=== PATIENT | male | born 1960 | race Caucasian/White ===

== ENCOUNTER 2022-07-16 11:27 | Outpatient (CLI) | payer OTHER, SELFPAY ==
--- OUTSIDE RECORDS SUMMARY | 2022-07-16 10:43 | XMS_ITS | Clinical Summary ---
:1960 Author Organization [email or web address] [place] [address] Care Team Providers Name Role Phone Pcp, No Primary Care Provider Unavailable Allergies Active Allergy Reactions Severity Noted Date Comments Penicillins *Unknown - Childhood Rxn 10/14/2019 Medications Medication Sig Dispensed Refills Start Date End Date Status amLODIPine (NORVASC) 5 1 (ONE) TABLET BY 0 Active mg tablet MOUTH AT BEDTIME potassium chloride 1 (ONE) TABLET BY 0 01/31/2021 Active (K-DUR) 20 mEq MOUTH DAILY Extended-Release tablet telmisartan (MICARDIS) 0 01/27/2021 Active 80 mg tablet Active Problems Not on file Social History Tobacco Use Types Packs/Day Years Used Date Never Assessed Sex Assigned at Date Recorded Not on file Obstetrics History Last Filed Vital Signs Vital Sign Reading Time Taken Comments Blood Pressure 144/78 04/22/2021 12:07 PM CDT Pulse 80 04/22/2021 12:07 PM CDT Temperature 36.9 ??C (98.5 ??F) 04/22/2021 12:07 PM CDT Respiratory Rate 14 04/22/2021 12:07 PM CDT Oxygen Saturation 99% 04/22/2021 12:07 PM CDT Inhaled Oxygen Concentration - - Weight 77.1 kg (170 lb) 04/22/2021 12:07 PM CDT Height 172.7 cm (5' 8) 10/14/2019 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 Body Mass Index 25.85 10/14/2019 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 Plan of Treatment Health Maintenance Due Date Last Done Comments Tdap 1971 Depression screening for age 12+ 1972 BMI (ht and wt on same day) for age 18+ 1978 Hepatitis C screening for age 18-79 1978 Tetanus booster 1980 Colonoscopy through age 75 2005 Lipids for age 45-75 2005 Zoster (shingles) series for age 50+ (1 of 2010 2) COVID-19 vaccine series (3 - Booster for 07/11/2021 021, 01/18/2021 Pfizer series) Influenza for age 50-64 06/21/2022 Results Not on filefrom Last 3 Months Insurance Payer Benefit Plan / Subscriber ID Effective Dates Phone Addre ss Type Group [facility] [id number] 2020-Present [address] [address] [place] [address] Care Teams Clinical Exercise Specialist Relationship Specialty Start Date End Date Pcp, No PCP - General 10/14/19 .
[2022-07-16 13:26] LABS: Albumin* 4.6 g/dL (3.3-5.0); Chloride* 105 mmol/L (96-114)
[2022-07-16 13:27] LABS: Potassium* 4.5 mmol/L (3.6-5.1); Sodium* 134 mmol/L (135-149)
[2022-07-16 13:29] LABS: Alkaline Phosphatase* 89 U/L (40-150); Aspartate Amino Transferase* 26 U/L (12-35); Bilirubin Total* 0.5 mg/dL (0.1-1.5); Blood Urea Nitrogen* 20 mg/dL (7-30); Carbon Dioxide* 23 mmol/L (20-32); Cholesterol* 273 mg/dL (90-199); Creatinine* 0.8 mg/dL (0.5-1.5); Estimated Glomerular Filt Rate 101 ml/min; Total Protein* 7.5 g/dL (6.0-8.3)
[2022-07-16 13:30] LABS: Alanine Aminotransferase* 22 U/L (4-50); Calcium* 10.8 mg/dL (8.4-10.6); Glucose* 101 mg/dL (60-115); HDL Cholesterol* 78 mg/dL (>=40); LDL Cholesterol Calculated 172 mg/dL (<100); Triglycerides* 113 mg/dL (40-149)
[2022-07-16 14:00] LABS: PSA Screen* 3.22 ng/mL (0.10-4.00)
== END 2022-07-16 11:28 | disposition home or self-care (01) ==
PROVIDERS: PCP Family Medicine; Visit Provider Family Medicine
DX: I10 Essential (primary) hypertension (principal); Z13.6 Encounter for screening for cardiovascular disorders; Z12.5 Encounter for screening for malignant neoplasm of prostate
CPT/HCPCS: 80053; 80061; 84153

== ENCOUNTER 2023-08-19 08:25 | Outpatient (CLI) | payer OTHER, SELFPAY | END 2023-08-19 08:26 | disposition home or self-care (01) | LOC: NFLDREF 08-21 18:19 | PROVIDERS: PCP Family Medicine; Referring Provider Family Medicine; Visit Provider Family Medicine | DX: Z00.00 Encounter for general adult medical examination without abnormal findings (principal); E78.5 Hyperlipidemia, unspecified; Z12.5 Encounter for screening for malignant neoplasm of prostate | CPT/HCPCS: 80053; 80061; 84153 ==

== ENCOUNTER 2024-09-29 08:25 | Outpatient (CLI) | payer OTHER, SELFPAY | END 2024-09-29 08:26 | disposition home or self-care (01) | LOC: NFLDREF 10-01 07:25 | PROVIDERS: PCP Family Medicine; Referring Provider Family Medicine; Visit Provider Family Medicine | DX: I10 Essential (primary) hypertension (principal); E78.5 Hyperlipidemia, unspecified; Z12.5 Encounter for screening for malignant neoplasm of prostate | CPT/HCPCS: 80053; 80061; G0103 ==

== ENCOUNTER 2024-10-06 07:09 | Outpatient (CLI) | payer OTHER, SELFPAY ==
--- NOTE | 2024-10-06 08:34 | W.ANESCHARGE ---
Anesthesia Charges Start Date/Time Anesthesia Start Date: 10/01/24 Anesthesia Start Time: 08:00 Stop Date/Time Anesthesia Stop Date: 10/06/24 Anesthesia Stop Time: 08:33
--- NOTE | 2024-10-06 10:51 | W.ANESCHARGE ---
Anesthesia Charges Start Date/Time Anesthesia Start Date: 10/01/24 Anesthesia Start Time: 08:00 Stop Date/Time Anesthesia Stop Date: 10/06/24 Anesthesia Stop Time: 08:33
== END 2024-10-06 07:10 | disposition home or self-care (01) ==
LOC: OP CLINIC 07:10
PROVIDERS: PCP Family Medicine; Visit Provider Surgery
DX: Z12.11 Encounter for screening for malignant neoplasm of colon (principal); D12.3 Benign neoplasm of transverse colon; K57.30 Diverticulosis of large intestine without perforation or abscess without bleeding; Z86.0100 Personal history of colon polyps, unspecified
CPT/HCPCS: 00811; 45385; 88305; J2704

== ENCOUNTER 2024-10-18 16:16 | Emergency (ER) | payer OTHER, SELFPAY ==
[2024-10-18 16:33] VITALS: BP 171/77; PULSE 91; RESP 18; TEMP 37.3; O2SAT 97; BMI 27.1
--- NOTE | 2024-10-18 16:39 | CRLHL7_ITS ---
For Patients: As a result of the Cures Act, medical imaging exams and procedure reports are released immediately into your electronic medical record. You may view this report before your referring provider. If you have questions, please contact your health care provider. Indication: FALL, PAIN Technique: Frontal view of the pelvis and frontal and lateral views of the right hip Comparison: None Findings/Impression: No acute fracture or malalignment. Minimal osteoarthritic degenerative changes of the bilateral sacroiliac and femoroacetabular joints. No suspicious osseous lesions. The soft tissues are without acute abnormality. Vascular calcifications. Dictated by Niranjan Ware MD @ 10/18/2024 5:34:01 PM (Electronically Signed)
[2024-10-18 19:33] VITALS: BP 179/86; PULSE 104; RESP 18; TEMP 37; O2SAT 97
--- NOTE | 2024-10-18 20:22 | ED_ITS ---
HPI - Extremity Injury (Lower) General Time Seen by Provider: 20:22 Date Seen: 10/18/24 Chief Complaint: Extremity Pain/Injury, Lower Stated Complaint: Fall last night, hip pain Time Seen by Provider: 10/18/24 16:39 Source: patient and RN notes reviewed Mode of arrival: ambulatory Limitations: no limitations History of Present Illness HPI Narrative: This 64-year-old male is ambulatory into the ED of his own accord with complaint of right hip pain. Was walking the dog last night when he slipped and fell. He fell somewhat forward, brace the fall with his right elbow, there is bruising but is not that painful for him, he is not concerned about this. He has a bruise on the lateral aspect of his right hip but the pain is more anteriorly. He states what hurts the most is moving his legs in an out of the car. Walking is not that problematic. He is worried there could be a fracture. He is not feeling any pain in the groin, no pain down the leg, no pain in the knee. He denies any head injury with this fall peer MD complaint: hip injury Related Data Home Medications ?Medication ?Instructions ?Recorded ?Confirmed cholecalciferol (vitamin D3) 25 25 mcg PO QDAY 07/17/22 10/01/24 mcg (1,000 unit) tablet aspirin 81 mg tablet,delayed 81 mg PO QDAY 08/21/23 10/01/24 release (Adult Low Dose Aspirin) Previous Rx's ?Medication ?Instructions ?Recorded peg 3350-electrolytes 236 240 ml PO Q10M #4,000 mL 09/18/24 gram-22.74 gram-6.74 gram-5.86 gram solution (Golytely) amlodipine 10 mg tablet 10 mg PO DAILY #90 tabs 10/01/24 atorvastatin 40 mg tablet 40 mg PO QHS #90 tabs 10/01/24 potassium chloride 20 mEq 20 meq PO DAILY #90 tabs 10/01/24 tablet,extended release(part/cryst) telmisartan 80 mg tablet 80 mg PO QDAY #90 tabs 10/01/24 Allergies Allergy/AdvReac Type Severity Reaction Status Date / Time Penicillin Allergy Unknown rash Uncoded 10/01/24 07:19 Review of Systems Narrative: As per HPI. PFSH PFSH Medical History COVID-19 ?U07.1 - COVID-19 (ICD-10) History of vitamin D deficiency (2017) ?Z86.39 - Personal history of other endocrine, nutritional and metabolic disease (ICD-10) History of hypercalcemia (2017) ?Z86.39 - Personal history of other endocrine, nutritional and metabolic disease (ICD-10) History of adenomatous polyp of colon (09/23/17) ?Z86.010 - Personal history of colonic polyps (ICD-10) Surgical History Hx of removal of neck cyst ?Z98.890 - Other specified postprocedural states (ICD-10) History of tonsillectomy and adenoidectomy ?Z90.89 - Acquired absence of other organs (ICD-10) History of melanoma excision ?Z98.890 - Other specified postprocedural states (ICD-10) ?Z85.820 - Personal history of malignant melanoma of skin (ICD-10) Family History Mother Breast cancer Father Stroke Sister Mental disorder Social History Narrative: Patient works in sales. What is your current living situation?: I presently have a place to live Problems where you live: no known problems In the past 12 months, utilities in danger of being shut off: no In past 12 months, lack of transportation kept you from medical appts, meetings, work, or getting things needed for daily living: no In the past 12 mos, have been you worried that your food would run out before you had money to buy more?: never true In the past 12 mos, the food you bought just didn't last and you didn't have money to buy more?: never true Smoking Status: Former smoker How often do you have a drink containing alcohol: monthly or less AUDIT-C Alcohol total score: 1 Non-prescribed substance use: denies use How often does anyone, including family, friends and others, physically hurt you : never How often does anyone, including family, friends and others, insult or talk down to you: never How often does anyone, including family, friends and others, threaten you with harm: never How often does anyone, including family, friends and others, scream or curse at you: never Exam Const: Vital Signs, click to edit/add: Vital Signs - 24 hr 10/18/24 16:33 10/18/24 19:33 Temperature 99.2 F 98.6 F Pulse Rate [Right Pulse Oximeter] 91 104 H Respiratory Rate 18 18 Blood Pressure [Ri ght Upper Arm] 171/77 H 179/86 H Pulse Oximetry 97 97 Oxygen Delivery Me thod Room Air Room Air This 64-year-old male is alert, interactive, no apparent distress. Has some bruising over his right elbow, I can completely flex extend, supinate, no concerns with range of motion and no complaints of pain. There is no significant swelling, no joint effusion. He is not complaining of any elbow symptoms. He has a small about quarter size bruise over the right lateral hip which is mildly tender. His pain is more anteriorly over the greater trochanter where the muscle attachment is. There is no significant overlying ecchymosis or swelling. He is point tender there. I can mobilize his hip and do internal and external range of motion, there is really no pain with range of motion of his hip. He still has preserved flexion extension of the hip. I do wonder if this is the insertion of the vastus muscle in the hip attaching to that anterior portion of the greater trochanter. He does state walking is not painful. Documenting provider has reviewed patient's vital signs: yes Course Vital Signs Vital signs: Initial Vital Signs Temperature 99.2 F 10/18/24 16:33 Temperature Source Temporal Artery Scan 10/18/24 16:33 Pulse Rate 91 10/18/24 16:33 Pulse Rhythm Regular 10/18/24 16:33 Respiratory Rate 18 10/18/24 16:33 Blood Pressure 171/77 H 10/18/24 16:33 Blood Pressure Mean 108 H 10/18/24 16:33 Blood Pressure Position Sitting 10/18/24 16:33 Pulse Oximetry 97 10/18/24 16:33 Oxygen Delivery Method Room Air 10/18/24 16:33 Vital Signs Temperature 99.2 F 10/18/24 16:33 Pulse Rate 91 10/18/24 16:33 Respiratory Rate 18 10/18/24 16:33 Blood Pressure 171/77 H 10/18/24 16:33 Pulse Oximetry 97 10/18/24 16:33 Oxygen Delivery Method Room Air 10/18/24 16:33 Temperature 98.6 F 10/18/24 19:33 Pulse Rate 104 H 10/18/24 19:33 Respiratory Rate 18 10/18/24 19:33 Blood Pressure 179/86 H 10/18/24 19:33 Pulse Oximetry 97 10/18/24 19:33 Oxygen Delivery Method Room Air 10/18/24 19:33 MDM - Extremity Injury (Lower) Imaging Data XR right hip: Attestation: I have reviewed the pertinent imaging results. Radiologist's impression: Patient: CHRISTOPHE PARKER Facility:?[facility] Patient ID:?[id number] Site Patient ID:?[id number]. Site :?[id number] Study:?XRay-Hip Right 2 VIEW AND PELVIS-10/18/2024 5:10:04 PM Ordering Physician:Brannon Mederos Final Report: Indication: FALL, PAIN Technique: Frontal view of the pelvis and frontal and lateral views of the right hip Comparison: None Findings/Impression: No acute fracture or malalignment. Minimal osteoarthritic degenerative changes of the bilateral sacroiliac and femoroacetabular joints. No suspicious osseous lesions. The soft tissues are without acute abnormality. Vascular calcifications. Dictated by Niranjan Ware MD @ 10/18/2024 5:34:01 PM (Electronic Signature) Discharge Plan Discharge Clinical Impression: Hip injury Qualifiers: Encounter type: initial encounter Laterality: right Qualified Code(s): S79.911A - Unspecified injury of right hip, initial encounter Patient Disposition: Home, Self-Care Condition: Stable Instructions: Hip Pain (ED) Additional Instructions: X-ray showing no evidence of any fracture. On exam, you seem to have tenderness at the site of attachment of a hip muscle. There could be bruising to this, some mild injury to this hip tendon. I would favor. Of limiting activity, trying ice, trying Tylenol and ibuprofen. If this continues to bother you, may need re-evaluation and consideration for potential advanced imaging if there is concern about ongoing muscular or ligamentous issues. Activity Level: Activity as Tolerated Prescriptions: No Action aspirin [Adult Low Dose Aspirin] 81 mg tablet,delayed release (DR/EC) 81 mg PO QDAY amlodipine 10 mg tablet 10 mg PO DAILY Qty: 90 3RF potassium chloride 20 mEq tablet,ER particles/crystals 20 meq PO DAILY Qty: 90 3RF atorvastatin 40 mg tablet 40 mg PO QHS Qty: 90 3RF telmisartan 80 mg tablet 80 mg PO QDAY Qty: 90 3RF cholecalciferol (vitamin D3) 25 mcg (1,000 unit) tablet 25 mcg PO QDAY peg 3350-electrolytes [Golytely] 236-22.74-6.74 -5.86 gram recon soln 240 ml PO Q10M Qty: 4000 0RF Rx Instructions: until fecal effluent is clear Follow Up/Referrals: Ti Gonzalez MD [Primary Care Provider] - Stand Alone Forms: MyHealth Info Instructions
== END 2024-10-18 20:42 | disposition home or self-care (01) ==
PROVIDERS: Emergency Provider Family Medicine; PCP Family Medicine
DX: S79.911A Unspecified injury of right hip, initial encounter (principal); W01.0XXA Fall on same level from slipping, tripping and stumbling without subsequent striking against object, initial encounter
CPT/HCPCS: 73502; 99282; 99283

== ENCOUNTER 2025-02-17 09:59 | Outpatient (CLI) | payer BC, SELFPAY ==
--- NOTE | 2025-02-17 10:00 | CRLHL7_ITS ---
For Patients: As a result of the Century Cures Act, medical imaging exams and procedure reports are released immediately into your electronic medical record. You may view this report before your referring provider. If you have questions, please contact your health care provider. INDICATION: Chronic sinusitis. Loss of hearing. Nasal polyps. TECHNIQUE: High-resolution CT images through the paranasal sinuses were obtained without contrast. Multiplanar reconstructions. FINDINGS: Frontal: There is mild coastal thickening in the inferior frontal air cells and inferior frontal recesses. No air-fluid levels. Ethmoid: There is moderate mucosal thickening in multiple bilateral anterior ethmoid air cells. Sphenoid: 2 mm or less mucosal thickening along the anterior margins of the sphenoid air cells near the sphenoid ethmoidal recesses. Maxillary: Mucosal thickening of the inferior maxillary antrum measures 6 mm or less on the left and 4 mm or less on the right. No air-fluid levels. There is associated mucosal narrowing of the bilateral ostiomeatal units. Nasal fossa: There are nodular/polypoid densities within the nasal fossa with the largest involving the middle turbinates bilaterally and obstructing the middle meatus. There is convex right curve of the anterior bony nasal septum. Some mild prominence of nasopharyngeal lymphoid tissues. There is opacification of spur the right inferior mastoid air cells possibly due to eustachian tube dysfunction. IMPRESSION: 1. The paranasal sinus mucosal thickening most prominent in the anterior ethmoid air cells but also noted in the inferior frontal, anterior sphenoid and inferior bilateral maxillary sinuses. 2. Associated mucosal narrowing/obstruction of the ostiomeatal units. 3. Nasal polyps primarily affecting the middle turbinates bilaterally. 4. Right partial mastoid opacification suggesting eustachian tube dysfunction. Please note that all CT scans at this facility use dose modulation, iterative reconstruction, and/or weight-based dosing when appropriate to reduce radiation dose to as low as reasonably achievable. Dictated by Santana Marin MD @ 02/17/2025 3:41:22 PM (Electronically Signed)
== END 2025-02-17 10:00 | disposition home or self-care (01) ==
LOC: CT 10:00
PROVIDERS: PCP Family Medicine; Visit Provider Otolaryngology
DX: J32.9 Chronic sinusitis, unspecified (principal); J32.0 Chronic maxillary sinusitis; J32.3 Chronic sphenoidal sinusitis; J33.9 Nasal polyp, unspecified; H91.90 Unspecified hearing loss, unspecified ear
CPT/HCPCS: 70486

== ENCOUNTER 2025-04-08 07:46 | Outpatient (CLI) | payer BC, SELFPAY | END 2025-04-08 07:47 | disposition home or self-care (01) | LOC: NFLDREF 07:47 | PROVIDERS: PCP Family Medicine; Visit Provider Family Medicine | DX: Z01.818 Encounter for other preprocedural examination (principal) | CPT/HCPCS: 80048 ==

== ENCOUNTER 2025-05-07 10:50 | Day surgery (SDC) | payer BC, SELFPAY ==
[2025-05-07] VITALS (11 sets, daily range): BP systolic 104–155; BP diastolic 64–82; PULSE 67–81; RESP 12–20; TEMP 36.1–37.2; O2SAT 95–99; BMI 25.9
[2025-05-07] MEDS: LACTATED RINGERS 1000 ML 1,000 ML 100 ML IV (11:05)
[2025-05-07] MEDS: OXYMETAZOLINE 0.05% NASAL SPRAY 2 SPRAY NOSTRIL-B (11:30)
[2025-05-07] MEDS: SODIUM CHLORIDE 0.9 % (FLUSH) 10 ML SYRINGE IVF (11:32)
[2025-05-07] MEDS: AYR SALINE NASAL GEL 1 APPLIC NOSTRIL-B (12:40)
[2025-05-07] MEDS: MUPIROCIN 1 GM PACKET 1 APPLIC TOPICAL (12:46)
[2025-05-07] MEDS: BUPIVACAINE 0.5%/EPINEPHRINE 0.9 MG (30.9 ML) INJECTION (12:50)
--- NOTE | 2025-05-07 12:58 | P.ENTPROC_ITS ---
Procedure Note Date of procedure: 05/07/25 Procedure: Preop diagnosis nasal obstruction, bilateral nasal polyposis, bilateral anterior ethmoid sinus disease, deviated septum Postop diagnosis same Procedure endoscopic nasal polypectomy bilateral, endoscopic bilateral anterior ethmoidectomy with image guidance, nasal septoplasty. Under general trach anesthesia patient was prepped draped usual fashion nose decongested injected. A the image guidance system was registered with good accu racy and confirmed by me. The nose was decongested with cocaine pledgets and injected. A right hemitransfixion incision was made. Left anterior and posterior tunnels were created. A vertical incision was made through the cartilage and a right posterior tunnel created. Posterior deflected is septal bone was resected and then a large piece was trimmed returned to intraseptal space. The septum was now midline and the hemitransfixion closed with a 4-0 Vicryl suture. On the right side the nasal polyps were grasped at their roots in the middle meatal region and removed. 0 degree endoscopy was used for the remainder of the procedure. The ethmoid bulla was taken down and anterior ethmoidectomy performed in anterior to posterior direction removing a moderate amount of polypoid tissue. This was repeated on the left side in identical fashion 1st removing the polyps and opening the ethmoid. Silastic stents were secured on either side the septum and Merocel packing was placed in the middle meatus on each side. The patient procedure well was taken recovery in satisfactory condition. Blood loss was 20 mL. Surgeon: Bao Ni MD
--- NOTE | 2025-05-07 13:06 | P.ANES_ITS ---
Anesthesia Charges Start Date/Time Anesthesia Start Date: 05/07/25 Anesthesia Start Time: 12:28 Stop Date/Time Anesthesia Stop Date: 05/07/25 Anesthesia Stop Time: 13:10 Coding CPT Codes CPT Codes: ANESTH NOSE/SINUS SURGERY - 66187 ([id number]) P2 - PATIENT W/MILD SYST DISEASE, QK - ELECTROCARDIOGRAPH REPAIRER 2-4 CNCRNT ANES PROC, QX - TRANSPORTATION LOGISTICS INTERNSHIP SVC W/ MD MED DIRECTION
--- NOTE | 2025-05-07 13:06 | W.ANESCHARGE ---
Anesthesia Charges Start Date/Time Anesthesia Start Date: 05/07/25 Anesthesia Start Time: 12:28 Stop Date/Time Anesthesia Stop Date: 05/07/25 Anesthesia Stop Time: 13:10 Coding CPT Codes CPT Codes: ANESTH NOSE/SINUS SURGERY - 04961 ([id number]) P2 - PATIENT W/MILD SYST DISEASE, QK - LEAD RAMP AGENT 2-4 CNCRNT ANES PROC, QX - FLOOR SURFACER SVC W/ MD MED DIRECTION
--- NOTE | 2025-05-07 13:09 | P.ANES_ITS ---
Anesthesia Charges Start Date/Time Anesthesia Start Date: 05/07/25 Anesthesia Start Time: 12:28 Stop Date/Time Anesthesia Stop Date: 05/07/25 Anesthesia Stop Time: 13:10 Coding CPT Codes CPT Codes: ANESTH NOSE/SINUS SURGERY - 13780 ([id number]) P2 - PATIENT W/MILD SYST DISEASE, QK - BIKE TECHNICIAN 2-4 CNCRNT ANES PROC, QX - TRUCK LOADER OVERHEAD CRANE SVC W/ MD MED DIRECTION
--- NOTE | 2025-05-07 13:09 | W.ANESCHARGE ---
Anesthesia Charges Start Date/Time Anesthesia Start Date: 05/07/25 Anesthesia Start Time: 12:28 Stop Date/Time Anesthesia Stop Date: 05/07/25 Anesthesia Stop Time: 13:10 Coding CPT Codes CPT Codes: ANESTH NOSE/SINUS SURGERY - 86632 ([id number]) P2 - PATIENT W/MILD SYST DISEASE, QK - SHORT STORY WRITER 2-4 CNCRNT ANES PROC, QX - COIN MACHINE SUPERVISOR SVC W/ MD MED DIRECTION
== END 2025-05-07 14:22 | disposition home or self-care (01) ==
LOC: OR 10:51
PROVIDERS: PCP Family Medicine; Visit Provider Otolaryngology
PROC: (CPT 31231; principal; 2025-05-07 11:45)
DX: J34.2 Deviated nasal septum (principal); J32.2 Chronic ethmoidal sinusitis; J33.8 Other polyp of sinus; J34.89 Other specified disorders of nose and nasal sinuses
CPT/HCPCS: 31255; 30520; 00160; 88305; A9270; J0330; J1100; J2405; J2704; J3010; J7120